=== PATIENT | male | born 1980 | race Caucasian/White ===

== ENCOUNTER 2022-06-29 09:38 | Emergency (ER) | payer OTHER ==
[2022-06-29] MEDS ORDERED: BACITRACIN15 GM TOP (12:29)
[2022-06-29] MEDS ORDERED: IBUPROFEN800 MG PO (12:29)
== END 2022-06-29 12:55 | disposition home or self-care (01) ==
LOC: FER 09:38
DX: S81.012A Laceration without foreign body, left knee, initial encounter (principal); S80.812A Abrasion, left lower leg, initial encounter; Z23 Encounter for immunization; V29.40XA Motorcycle driver injured in collision with unspecified motor vehicles in traffic accident, initial encounter; Y92.410 Unspecified street and highway as the place of occurrence of the external cause
CPT/HCPCS: 73560; 73590; 90471; 90715; J2001